=== PATIENT | female | born 1960 | race Caucasian/White ===

== ENCOUNTER 2021-04-12 00:11 | Emergency (ER) | payer BC ==
[2021-04-12 00:39] VITALS: BP 135/89; PULSE 74; TEMP 97.9; BMI 30.9
== END 2021-04-12 00:57 | disposition home or self-care (01) ==
LOC: FER 00:11
DX: H57.04 Mydriasis (principal)
CPT/HCPCS: 99283-25

== ENCOUNTER 2021-05-23 12:58 | Emergency (ER) | payer BC ==
[2021-05-23 13:09] VITALS: BP 118/82; PULSE 82; TEMP 98.7; BMI 31.7
[2021-05-23] MEDS ORDERED: IBUPROFEN 400 MG TABLET (FP) PO ONE ×2 (13:40→13:54)
== END 2021-05-23 14:34 | disposition home or self-care (01) ==
LOC: FER 12:58
DX: J11.1 Influenza due to unidentified influenza virus with other respiratory manifestations (principal)
CPT/HCPCS: 71045-TC-FY; 87804; 87807; 99284-25; C9803; U0003; U0005